=== PATIENT | male | born 1945 | race Caucasian/White ===

== ENCOUNTER 2016-08-28 15:34 | Inpatient (IN) | payer MEDICARE, MEDICAID ==
[2016-08-28] MEDS ORDERED: CLOZARIL100 MG PO (17:27)
[2016-08-28] MEDS ORDERED: DEPAKOTE SPRIN125 MG PO ×2 (17:29→17:51)
[2016-08-28] MEDS ORDERED: NATURE'S BLEND F1 MG PO (17:30)
[2016-08-28] MEDS ORDERED: MULTI VITAMINS1 TAB PO (17:30)
[2016-08-28] MEDS ORDERED: ZOCOR10 MG PO (17:31)
[2016-08-28] MEDS ORDERED: PROTONIX40 MG PO (17:31)
[2016-08-28] MEDS ORDERED: ZYPREXA15 M1 PO (17:33)
[2016-08-28] MEDS ORDERED: CORDARONE150 MG/3 M PO (17:38)
[2016-08-28] MEDS ORDERED: CALCI-CHEW500 MG PO (17:50)
[2016-08-28] MEDS ORDERED: FEROSUL325 M1 PO (17:53)
[2016-08-28] MEDS ORDERED: KLONOPIN0.5 MG PO (17:55)
[2016-08-28] MEDS ORDERED: MAGOX 400400 MG PO (17:59)
[2016-08-28] MEDS ORDERED: MIRALAX POWDER255 G1 PO (18:00)
[2016-08-28] MEDS ORDERED: TRILEPTAL600 MG PO (18:01)
[2016-08-28] MEDS ORDERED: THIAMINE HCL100 MG PO (18:02)
[2016-08-28] MEDS ORDERED: ATROVENT I0.5 MG/2.5 INH (18:04)
[2016-08-28] MEDS ORDERED: XOPENEX1.25 MG/3 NEB (18:06)
[2016-08-28] MEDS ORDERED: ATIVAN1 MG PO (18:07)
[2016-08-28] MEDS ORDERED: GEODON20 M1 IM (18:08)
[2016-08-28] MEDS ORDERED: NITROGLYCERIN0.4 MG SL (18:11)
[2016-08-28 20:00] VITALS: BP 126/81
[2016-08-28 22:04] VITALS: BP 126/81
[2016-08-29 07:37] LABS: BASO % 0.2 % (0.0-1.0); EOS # 0.2 10*3/uL (0.0-0.4); EOS % 1.6 % (1.0-4.0); HEMATOCRIT 41.2 % (42.0-52.0); HEMOGLOBIN 12.7 g/dl (14.0-18.0); IG # 0.1 10*3/uL (0.0-0.1); LYMPH # 1.8 10*3/uL (1.3-4.4); LYMPH % 18.9 % (27.0-41.0); MEAN CELL VOLUME 96.9 fl (80.0-94.0); MEAN CORPUSCULAR HGB 29.9 pg (27.0-31.0); MEAN CORPUSCULAR HGB CONC 30.8 g/dl (33.0-37.0); MEAN PLATELET VOLUME 9.4 fl (9.6-12.3); MONO # 1.4 10*3/uL (0.1-1.0); MONO % 14.6 % (3.0-9.0); NEUT # 6.1 10*3/uL (2.3-7.9); PLATELET COUNT AUTOMATED 205 10*3/uL (130-400); RED BLOOD COUNT 4.25 10*6/uL (4.50-5.90); RED CELL DISTRI WIDTH 14.4 % (0-14.5); WHITE BLOOD COUNT 9.5 10*3/uL (4.8-10.8)
[2016-08-29 08:02] LABS: ALBUMIN 2.7 gm/dl (3.1-4.5); ALKALINE PHOSPHATASE 68 U/L (45-117); BILIRUBIN, TOTAL 0.4 mg/dl (0.2-1.0); BUN 25 mg/dl (7-24); CARBON DIOXIDE 37 mmol/L (21-32); CHLORIDE 102 mmol/L (98-107); CHOLESTEROL 176 mg/dL (<200); EST GLOM FILT AFRICAN AMERICAN > 60 ml/min; GLUCOSE 101 mg/dL (65-99); HDL CHOLESTEROL 67 mg/dl (40-60); LDL CHOLESTEROL 84 mg/dL (9-159); MAGNESIUM 2.5 mg/dL (1.5-2.1); SGOT/AST 10 IU/L (3-35); SGPT/ALT 13 U/L (12-78); SODIUM 143 mmol/L (136-145); TOTAL PROTEIN 7.1 gm/dL (6.4-8.2); TRIGLYCERIDES 126 mg/dl (<150); VLDL CHOLESTEROL 25 mg/dL (6-40)
[2016-08-29 08:05] VITALS: BP 116/65
[2016-08-29 08:11] LABS: HEMOGLOBIN A1c 5.5 % (4.8-5.6)
[2016-08-29 08:51] LABS: VITAMIN D, 25-HYDROXY 29.5 ng/mL (30-100)
[2016-08-29 09:01] LABS: FOLIC ACID > 24.00 ng/mL (>5.38)
[2016-08-29 09:13] LABS: BILIRUBIN NEGATIVE (NEGATIVE); BLOOD NEGATIVE (NEGATIVE); CLARITY SL CLOUDY (CLEAR); COLOR YELLOW (YELLOW); GLUCOSE NEGATIVE (NEGATIVE); KETONE 1+ (NEGATIVE); LEUKO ESTERASE NEGATIVE (NEGATIVE); NITRITE NEGATIVE (NEGATIVE); PH 7.5 (5.0-9.0); PROTEIN TRACE (NEGATIVE); SPECIFIC GRAVITY 1.015 (1.005-1.030)
[2016-08-29 10:12] LABS: BACTERIA TRACE; MUCOUS TRACE; URINE REFLEX COMMENT NO (NO); WBC 0-2 wbc/hpf (0-5)
[2016-08-29 20:00] VITALS: BP 104/68
[2016-08-30 08:22] VITALS: BP 112/68
[2016-08-30 20:00] VITALS: BP 132/84
[2016-08-31 07:47] VITALS: BP 138/86
[2016-08-31 21:04] VITALS: BP 117/73
[2016-09-01 20:02] VITALS: BP 136/80
[2016-09-02 08:01] VITALS: BP 112/77
[2016-09-02 20:11] VITALS: BP 127/98
[2016-09-03 07:47] VITALS: BP 114/68
[2016-09-03 20:45] VITALS: BP 136/83
[2016-09-04 20:10] VITALS: BP 120/82
[2016-09-05 07:56] LABS: BASO % 0.6 % (0.0-1.0); EOS # 0.1 10*3/uL (0.0-0.4); EOS % 1.4 % (1.0-4.0); HEMATOCRIT 39.1 % (42.0-52.0); IG # 0.1 10*3/uL (0.0-0.1); LYMPH # 1.8 10*3/uL (1.3-4.4); LYMPH % 25.1 % (27.0-41.0); MEAN CELL VOLUME 96.1 fl (80.0-94.0); MEAN CORPUSCULAR HGB 29.5 pg (27.0-31.0); MEAN CORPUSCULAR HGB CONC 30.7 g/dl (33.0-37.0); MEAN PLATELET VOLUME 9.2 fl (9.6-12.3); MONO # 0.7 10*3/uL (0.1-1.0); MONO % 9.8 % (3.0-9.0); NEUT # 4.5 10*3/uL (2.3-7.9); PLATELET COUNT AUTOMATED 236 10*3/uL (130-400); RED BLOOD COUNT 4.07 10*6/uL (4.50-5.90); RED CELL DISTRI WIDTH 13.9 % (0-14.5); WHITE BLOOD COUNT 7.3 10*3/uL (4.8-10.8)
[2016-09-05 08:06] VITALS: BP 122/73
[2016-09-05 08:20] LABS: BUN 14 mg/dl (7-24); CARBON DIOXIDE 37 mmol/L (21-32); CHLORIDE 100 mmol/L (98-107); EST GLOM FILT AFRICAN AMERICAN > 60 ml/min; GLUCOSE 100 mg/dL (65-99); POTASSIUM 3.7 mmol/L (3.5-5.1); SODIUM 142 mmol/L (136-145)
[2016-09-05] MEDS ORDERED: VRAYLAR6 MG PO (08:48)
[2016-09-05] MEDS ORDERED: KLONOPIN2 M1 PO (08:48)
[2016-09-05] MEDS ORDERED: CLOZAPINE100 MG PO (08:48)
[2016-09-05] MEDS ORDERED: EXELON13.3 MG/21 T (08:48)
[2016-09-05] MEDS ORDERED: VITAMIN E400 UNI2 PO (15:44)
[2016-09-07 00:05] LABS: CLONAZEPAM (KLONOPIN),SERUM 25 ng/mL (20-70)
== END 2016-09-05 17:39 | disposition other institution (70) | DRG 57 ==
LOC: EDBD → 3N 15:34
PROVIDERS: Internal Medicine; Psychiatry & Neurology Psychiatry
DX: G30.9 Alzheimer's disease, unspecified (principal); J96.11 Chronic respiratory failure with hypoxia; F02.81 Dementia in other diseases classified elsewhere, unspecified severity, with behavioral disturbance; I27.2 Other secondary pulmonary hypertension; I48.0 Paroxysmal atrial fibrillation; J44.9 Chronic obstructive pulmonary disease, unspecified; Z79.01 Long term (current) use of anticoagulants; I25.10 Atherosclerotic heart disease of native coronary artery without angina pectoris; K21.9 Gastro-esophageal reflux disease without esophagitis; R26.9 Unspecified abnormalities of gait and mobility; F25.9 Schizoaffective disorder, unspecified; N18.3 Chronic kidney disease, stage 3 (moderate); F41.1 Generalized anxiety disorder; Z87.891 Personal history of nicotine dependence; M81.0 Age-related osteoporosis without current pathological fracture; D50.9 Iron deficiency anemia, unspecified; E78.00 Pure hypercholesterolemia, unspecified